=== PATIENT | female | born 1950 | race African-American/Black ===

== ENCOUNTER 2017-01-08 13:33 | Inpatient (IN) ==
--- NOTE | 2017-01-08 14:53 | Emergency Department Note ---
Elizabeth Denise Hilary, am scribing for, and in the presence of, Justin Hazel MD 13: 59. Yasemin Denise James D, MD, personally performed the services described in this documentation, ascribed by Kylah Johnson in my presence, and it is both accurate and complete 443 . Arrival - Arrival ED Nursing Triage Note: pt was at dialysis and started having sob and low bp. Mode of Arrival: Stretcher Limitations: No Limitations Source: Patient, RN Notes Reviewed - History of Present Illness Onset (ago): hour(s) Consistency: constant Severity: mild Severity scale (1-10): 1 <Justin Hazel - Last Filed: 01/08/17 15:55> <Hamlet Arredondo - Last Filed: 01/08/17 16:38> - Arrival Chief Complaint: Shortness of Breath Time Seen by Provider: 01/08/17 13:49 - History of Present Illness HPI Narrative: Pt is a 66 y/o black female brought into the ED via EMS for c/o low blood pressure and SOB which onset today while at dialysis. Pt confirms SOB has resolved but she feels "fluffy" around her abdomen. No other complaints or problems stated in the ED. Patient is a poor historian. (Justin Hazel) Pt is a 66 y/o black female brought into the ED via EMS for c/o low blood pressure and SOB which onset today while at dialysis. Pt confirms SOB has resolved but she feels "fluffy" around her abdomen. No other complaints or problems stated in the ED. Patient is a poor historian. (Kylah Johnson) Allergies/Adverse Reactions: Allergies Allergy/AdvReac Type Severity Reaction Status Date / Time clindamycin [From Cleocin] Allergy Mild Swelling Verified 01/04/17 09:29 of Lip/Tongue/Throat metformin [From Glucophage] Allergy Mild Unknown/Unable Verified 01/04/17 09:29 to obtain metoprolol [From Toprol XL] Allergy Mild ITCHING Verified 01/04/17 09:29 nebivolol [From Bystolic] Allergy Mild Unknown/Unable Verified 01/04/17 09:29 to obtain pioglitazone [From Actos] Allergy Mild swelling Verified 01/04/17 09:29 Home Medications: Home Medications Medication Instructions Recorded Confirmed Type Calcium Acetate [Phoslo] 1,334 mg PO TID W/MEALS 01/14/15 01/08/17 History Acetaminophen Tab [Tylenol Tab] 650 mg PO QID 01/04/17 01/08/17 History Bimatoprost 0.01% Oph Soln 1 drop BOTH EYES BEDTIME 01/04/17 01/08/17 History [Lumigan] Brimonidine/Timolol Oph Soln 1 drop BOTH EYES BID 01/04/17 01/08/17 History [Combigan] Loratadine [Claritin] 10 mg PO DAILY 01/04/17 01/08/17 History Midodrine [Proamatine] 5 mg PO TID 01/04/17 01/08/17 History Calcium Acetate [Phoslo] 2,001 mg PO TID W/MEALS 01/08/17 01/08/17 History Review of System - Review of System 12 point system: reviewed and no additional remarkable complaints except as stated - Review of System Constitutional: Absent: fever Respiratory: Present: respiratory distress (SOB) <Justin Hazel - Last Filed: 01/08/17 15:55> Medical,Surgical,& Family Hx - Medical History Cardio: History of: CHF, Hypertension Neurology: History of: Cerebrovascular Accident No history of: Seizures HEENT: History of: Eye Problem (left eye blind), Dental Problems (dentures upper ) Endocrine: History of: Diabetes Mellitus (NIDDM) (DOES NOT TAKE MEDICATION) Rheumatology: History of;: Rheumatoid Arthritis Renal: History of: Dialysis (t sat), Renal Failure Genitourinary: History of: Kidney Stones Other: History of: Skin Problems (DRY SKIN) - Surgical History Cardiac Surgeries: Sugical HX of: Cardiac Catheterization HEENT Surgeries: Surgical HX of: Eye Surgery (cataract, laser,sx for hemmorage) Orthopedic Surgeries: Surgical HX of;: Total Hip Replacement (right hip) - Social History Smoking Status: Never smoker Frequency of Alcohol Use: None Type of Drug Use: None <Justin Hazel - Last Filed: 01/08/17 15:55> Exam <Justin Hazel - Last Filed: 01/08/17 15:55> <Hamlet Arredondo W - Last Filed: 01/08/17 16:38> Physical Examination: GENERAL: This is a well-nourished, well-developed female in no apparent distress. VITAL SIGNS: Temperature: 97 Pulse: 89 Respiratory: 20 Blood Pressure: 90/68 O2Sat: HEENT: Head is normocephalic and atraumatic. Pupils are equally round and reactive to light. Extraocular movement are intact. Oropharynx is benign with moist mucous membranes. NECK: Neck is soft and supple without tenderness. There are no masses. There is no lymphadenopathy. LUNGS: Lungs are clear to auscultation bilaterally. Chest rises symmetrically. There is no chest wall tenderness. CV: Heart is irregularly irregular without murmurs, rubs, or gallops. ABDOMEN: Abdomen is soft, non-tender to palpation. There are no abnormal masses palpated. There is no organomegaly. Bowel sounds are present and active. SKIN: Skin is warm and dry. No rash. EXTREMITIES: Patient has bilateral AKAs NEUROLOGIC: Awake, alert, and oriented x4. Cranial nerves II through XII are grossly intact. There are no motorsensory deficits. PSYCHIATRIC: Normal affect. Normal mood. (Justin Hazel) GENERAL: This is a well-nourished, well-developed female in no apparent distress. VITAL SIGNS: Temperature: 97 Pulse: 89 Respiratory: 20 Blood Pressure: 90/68 O2Sat: HEENT: Head is normocephalic and atraumatic. Pupils are equally round and reactive to light. Extraocular movement are intact. Oropharynx is benign with moist mucous membranes. NECK: Neck is soft and supple without tenderness. There are no masses. There is no lymphadenopathy. LUNGS: Lungs are clear to auscultation bilaterally. Chest rises symmetrically. There is no chest wall tenderness. CV: Heart is irregularly irregular without murmurs, rubs, or gallops. ABDOMEN: Abdomen is soft, non-tender to palpation. There are no abnormal masses palpated. There is no organomegaly. Bowel sounds are present and active. SKIN: Skin is warm and dry. No rash. EXTREMITIES: Patient has bilateral AKAs NEUROLOGIC: Awake, alert, and oriented x4. Cranial nerves II through XII are grossly intact. There are no motorsensory deficits. PSYCHIATRIC: Normal affect. Normal mood. (Homarzica,Kylah) Vital Signs: Vital Signs Temperature 97.0 F L 01/08/17 13:42 Pulse Rate 89 01/08/17 13:42 Respiratory Rate 20 01/08/17 13:49 Blood Pressure 90/68 01/08/17 13:42 Course <Justin Hazel - Last Filed: 01/08/17 15:55> <Hamlet Arredondo - Last Filed: 01/08/17 16:38> Course Narrative: Patient was given 250 cc of normal saline IV. (Justin Hazel) Patient was given 250 cc of normal saline IV. (Kylah Johnson) - Reevaluation(s) Reevaluation #1: Advised patient with persistent hypotension and diffuse laboratory abnormalities she will require admission. (Hamlet Arredondo) - Consultations Consultation #1: Discussed with hospitalist service will admit for further evaluation treatment. (Hamlet Arredondo) Results - Labs CBC & BMP: 01/08/17 15:09 Lab Results: I have reviewed the patients labs - EKG EKG results: interpreted by ERMD - Diagnostic Findings Procedure: Chest x-ray: image reviewed by me (Cardiomegaly, no infiltrates, no pleural effusions.) <Justin Hazel - Last Filed: 01/08/17 15:55> - Labs CBC & BMP: 01/08/17 15:09 01/08/17 15:03 <Hamlet Arredondo - Last Filed: 01/08/17 16:38> - Labs Labs: Laboratory Tests 01/08/17 01/08/17 15:09 15:09 WBC 7.8 RBC 4.44 Hgb 14.9 Hct 42.0 RDW 21.8 H Plt Count 34 L* Neut % (Auto) 84.2 H Lymph % (Auto) 8.6 L Lymph # (Auto) 0.7 L Troponin I 0.232 H (Kylah Johnson) I have reviewed the laboratory noted the significant bump in the in P and troponin, excessive even for chronic renal failure. (Hamlet Arredondo) - Impressions EKG: Atrial fib with rate of 84, intraventricular conduction delay, old inferior [place]. (Justin Hazel) EKG: Atrial fib with rate of 84, intraventricular conduction delay, old inferior [place]. (Kylah Johnson) Disposition Case discussed with: patient <Justin Hazel - Last Filed: 01/08/17 15:55> Case discussed with: patient Time of Disposition: 16:38 <Hamlet Arredondo - Last Filed: 01/08/17 16:38> Clinical Impression: Dyspnea, End-stage renal disease on hemodialysis, Hypotension, Thrombocytopenia , Atrial fibrillation, Abnormal cardiac enzymes, Congestive failure Disposition: Still a Patient Condition: Guarded
--- NOTE | 2017-01-08 14:56 | EKG Report ---
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
[2017-01-08 15:19] LABS: Basophils % 0.3 % (0.0-0.8); Eosinophils % 0.1 % (0.00-10.9); Hemoglobin 14.9 GM/DL (12.0-16.0); Immature Granulocytes % 0.5 %; Immature Granulocytes Absolute 0.04 #; Lymphocytes # 0.7 10*3/uL (1.4-4.0); Lymphocytes % 8.6 % (21.3-54.2); Mean Corpuscular HGB Conc 35.5 GM/DL (32-36); Mean Corpuscular Hemoglobin 34 PG (27-34); Mean Corpuscular Volume 94.6 FL (87-102); Monocytes # 0.5 10*3/uL (0.11-0.8); Monocytes % 6.3 % (1.7-12.7); NRBC # 0.76 10*3/uL; Neutrophils # 6.6 10*3/uL (1.4-7.4); Neutrophils % 84.2 % (38.7-73.9); Red Blood Count 4.44 MC/CUMM (3.8-5.5); Red Cell Distribution Width 21.8 % (9.3-17.3); White Blood Count 7.8 T/CUMM (4-12)
[2017-01-08 15:23] LABS: Platelet Count 34 T/CUMM (130-400)
--- NOTE | 2017-01-08 15:29 | XRay Report ---
XR chest 1V portable Indication: Shortness of breath. Chest one view: Comparison 01/04/2017. Severe cardiomegaly with enlarged right atrium, and generally clear lungs are stable. No significant pulmonary edema. Lung volumes are decreased since previous examination with mild atelectasis. Impression: Pulmonary hypoinflation. Otherwise no change with continued severe cardiomegaly but no CHF. PROCEDURE INTERPRETED AT [facility] DEPARTMENT OF RADIOLOGY Final Report Signed by: Roddy Mcnair M.D.
[2017-01-08 15:37] LABS: Platelet Estimate Decreased
[2017-01-08 16:26] LABS: Calcium 9.7 MG/DL (8.5-10.1); Osmolality,Calculated 275.8 MOS/KG (273-304); Potassium 2.6 MMOL/L (3.5-5.1)
--- NOTE | 2017-01-08 17:15 | Hospitalist History & Physical ---
<Kirti Pruitt - Last Filed: 01/08/17 17:02> Assessment and Plan - Time spent with patient Time spent with patient: Greater than 30 minutes (1) Dyspnea Status: Acute Assessment and plan: At dialysis today and became short of breath and hypotension. Will admit to ICU for close monitoring. will repeat a.m. labs. Will replace potassium. Will discuss with Dr Garcia for further recommendations. Current Visit: Yes (2) End-stage renal disease on hemodialysis Status: Acute Assessment and plan: Chronic renal failure. Dr Calhoun patient. Current Visit: Yes (3) Hypotension Status: Acute Assessment and plan: Admit to CCU will monitor closely. Current Visit: Yes History of Present Illness Chief complaint: shortness of breath/hypotension History of present illness: Ms. Sagastume is a 66 year old black female with PMHx CHF, Hypertension; CVA; Left eye blindness; Diabetes; Rheumatoid arthritis; Chronic renal failure (dialysis) ; presented to ED via EMS from dialysis center for further evaluation of shortness of breath and hypotension developed while on dialysis. She reports shortness of breath since Saturday following her surgery: Placement of right femoral tunneled hemodialysis catheter, ultrasound-guided venous access, to right upper thigh. She reports nausea this morning. She denies chest pain, fever, or chills. Patient is a poor historian. In ED: CXR: pulmonary hypoinflation; otherwise no change with continued severe cardiomegaly but no CHF. EKG: atrial fib with rate of 84; intraventricular conduction delay, old inferior [place]. LABS: H&H stable; Platelet count low at 34; Potassium 2.6; BUN 24 and creatinine 5.0; Troponin 0.232; BNP 3899. Noted to have bilateral below the knee amputations. Hospitalist service consulted for evaluation of shortness of breath, hypotension, elevation in Troponin and BNP. Unsure of primary care physician. Renal Physician: Dr Calhoun After discussion with Dr Hazel in the ED and Dr Garcia with Hospitalist Services, it was agreed to admit patient to ICU for close monitoring. Home medications will be reviewed and reconciliation to follow. Home Medications Medication Instructions Recorded Confirmed Type Calcium Acetate [Phoslo] 1,334 mg PO TID W/MEALS 01/14/15 01/08/17 History Acetaminophen Tab [Tylenol Tab] 650 mg PO QID 01/04/17 01/08/17 History Bimatoprost 0.01% Oph Soln 1 drop BOTH EYES BEDTIME 01/04/17 01/08/17 History [Lumigan] Brimonidine/Timolol Oph Soln 1 drop BOTH EYES BID 01/04/17 01/08/17 History [Combigan] Loratadine [Claritin] 10 mg PO DAILY 01/04/17 01/08/17 History Midodrine [Proamatine] 5 mg PO TID 01/04/17 01/08/17 History Calcium Acetate [Phoslo] 2,001 mg PO TID W/MEALS 01/08/17 01/08/17 History Allergies Allergy/AdvReac Type Severity Reaction Status Date / Time clindamycin [From Cleocin] Allergy Mild Swelling Verified 01/04/17 09:29 of Lip/Tongue/Throat metformin [From Glucophage] Allergy Mild Unknown/Unable Verified 01/04/17 09:29 to obtain metoprolol [From Toprol XL] Allergy Mild ITCHING Verified 01/04/17 09:29 nebivolol [From Bystolic] Allergy Mild Unknown/Unable Verified 01/04/17 09:29 to obtain pioglitazone [From Actos] Allergy Mild swelling Verified 01/04/17 09:29 Medical,Surgical,& Family Hx - Medical History Cardio: History of: CHF, Hypertension Neurology: History of: Cerebrovascular Accident No history of: Seizures HEENT: History of: Eye Problem (left eye blind), Dental Problems (dentures upper ) Endocrine: History of: Diabetes Mellitus (NIDDM) (DOES NOT TAKE MEDICATION) Rheumatology: History of;: Rheumatoid Arthritis Renal: History of: Dialysis (sat), Renal Failure Genitourinary: History of: Kidney Stones Other: History of: Skin Problems (DRY SKIN) - Surgical History Cardiac Surgeries: Sugical HX of: Cardiac Catheterization HEENT Surgeries: Surgical HX of: Eye Surgery (cataract, laser,sx for hemmorage) Orthopedic Surgeries: Surgical HX of;: Total Hip Replacement (right hip) - Social History Smoking Status: Never smoker Frequency of Alcohol Use: None Type of Drug Use: None Lives With:: lives at home and has round the clock caregivers Review of systems: Review of systems completed and pertinent positive and negatives in HPI. Exam - Constitutional Vitals: Period Temp Pulse Resp BP Sys/Estevez Pulse Ox Last 24 Hr 97.0 F-97.0 F 89-89 20-20 90-90/68-68 General appearance: no acute distress, over weight - Head Head exam: Present: normal inspection - Eye Eye exam: Present: EOMI, other (patient has left eye blindness) Pupils: Present: BRENDA - Neck Neck exam: Present: normal inspection - Respiratory Respiratory exam: Present: clear to auscultation bilaterally. Absent: rhonchi, stridor, wheezes - Cardiovascular Cardiovascular exam: Present: irregular rhythm (chronic Afib (rate 84)) - GI/Abdominal GI/Abdominal exam: Present: normal bowel sounds, soft. Absent: tenderness, rebound - Extremities Exam Extremities exam: Present: other (bilateral below knee amputations; right dialysis catheter to right thigh). Absent: edema - Neurological Exam Neurological exam: Present: alert, oriented X3 - Psychiatric Psychiatric exam: Present: normal affect, normal mood. Absent: agitated, anxious - Skin Skin exam: Present: normal color, warm, dry Results - Labs CBC & BMP: 01/08/17 15:09 01/08/17 15:03 Lab Results: I have reviewed the past 24 hour labs - EKG EKG results: interpreted by CHERIE (afib ) - Diagnostic Findings Procedure: Chest x-ray: report reviewed by me (Pulmonary hypoinflation, otherwise no change with continued severe cardiomegaly but no CHF) <Unruly Garcia - Last Filed: 01/08/17 17:38> History of Present Illness History of present illness: Ms. Sagastume is a 66 year old female Exam - Constitutional Vitals: Period Temp Pulse Resp BP Sys/Estevez Pulse Ox Last 24 Hr 97.0 F-97.0 F 89-89 20-20 90-90/68-68 Results - Labs CBC & BMP: 01/08/17 15:09 01/08/17 15:03
[2017-01-08] MEDS ORDERED: CALCIUM ACETATE 667 MG CAPSULE PO SCH (17:30)
[2017-01-08] MEDS ORDERED: SODIUM CHLORIDE 0.9% 250 ML IV ONE (17:32)
[2017-01-08] MEDS ORDERED: ONDANSETRON 4 MG/2 ML VIAL IV PRN (17:33)
[2017-01-08] MEDS ORDERED: ENOXAPARIN 30 MG/0.3 ML SYRINGE SUBCUT SCH (18:00)
[2017-01-08] MEDS: POTASSIUM CHLORIDE 20 MEQ TABLET PO SCH ×2 (18:35→20:09)
[2017-01-08] MEDS: ACETAMINOPHEN 325 MG TABLET PO SCH ×2 (18:35→20:09)
[2017-01-08] MEDS: PHENYLEPHRINE DRIP 40 MG/250 ML PREMIX IV SCH ×2 (20:20→23:15)
[2017-01-08] MEDS ORDERED: MIDODRINE 5 MG TABLET PO SCH (21:00)
[2017-01-08] MEDS ORDERED: BIMATOPROST 0.01% OPH SOLN 2.5 ML BOTTLE BOTH EYES SCH (21:00)
[2017-01-08] MEDS ORDERED: BRIMONIDINE/TIMOLOL OPH SOLN 5 ML BOTTLE BOTH EYES SCH (21:00)
[2017-01-08] MEDS ORDERED: ENOXAPARIN 30 MG/0.3 ML SYRINGE SUBCUT ONE (21:00)
[2017-01-08] MEDS ORDERED: MORPHINE 2 MG/1 ML SYRINGE IV PRN (21:34)
[2017-01-08] MEDS ORDERED: LORazepam 2 MG/1 ML VIAL IV PRN (21:35)
--- NOTE | 2017-01-08 21:46 | Event Note ---
Hamilton taylor called to patient's room. Upon arrival to the patient bedside, patient 's nurse states that while returning from CT scan, patient's breathing became very shallow, her lips turned blue and she became incoherent and unresponsive. The patient's family stopped code efforts and stated they wanted the patient to be a DNR. Currently, the patient is lying in bed with eyes closed. She makes moaning sounds and moves left arm with unpurposeful movements. Manual BP was 110 /80. An EKG was ordered, as well as morphine and ativan for comfort measures.
[2017-01-09 00:15] VITALS: BP 92/73
--- NOTE | 2017-01-09 06:08 | CT Report ---
CT of the head without contrast. Indication: Altered mental status confusion and disorientation. Comparison: July 17, 2013. There is a preliminary report from [facility]. There is generalized prominence of the ventricles and sulci consistent with atrophy of aging. There are calcific changes noted within the vertebral and intracranial internal carotid arteries. There is bilateral basal ganglial calcification. There is a small remote lacunar infarct in the right temporal white matter. Within the white matter of both cerebral hemispheres, there are areas of low density consistent with chronic microvascular ischemia. No cortical infarct is seen at this time. There is no mass effect, midline shift, or area of hemorrhage. The calvarium is intact. The mastoid air cells are clear. There is scattered mucus debris within the ethmoid sinuses. Impression: Generalized atrophy. Chronic ischemic change. No acute intracranial process is seen. The CT exam was performed using one or more of the following dose reduction techniques: Automated exposure control, adjustment of the mA and/or kV according to patient size, or use of iterative reconstruction technique. PROCEDURE INTERPRETED AT [facility] DEPARTMENT OF RADIOLOGY Final Report Signed by: Dr. Ciara Rod
--- NOTE | 2017-01-09 06:13 | EKG Report ---
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
[2017-01-09] MEDS ORDERED: PANTOPRAZOLE 40 MG TABLET PO SCH (09:00)
[2017-01-09] MEDS ORDERED: ENOXAPARIN 60 MG/0.6 ML SYRINGE SUBCUT SCH (18:00)
== END 2017-01-08 22:59 | disposition expired | DRG 314 ==
LOC: EDBD → EDUNIT# → N.ED 13:33 → N.EDINP 16:44 → N.ICU 17:03
PROVIDERS: ADMIT Family Medicine; ATTEND Family Medicine